=== PATIENT | male | born 1955 | race African-American/Black ===

== ENCOUNTER 2016-09-21 03:12 | Emergency (ER) | payer MEDICAID, OTHER ==
[~2016-09-21] VITALS: Ht 188 cm; Wt 94.0 kg
[~2016-09-21 03:12] MED LIST: AMPICILLIN; TETRACYCLINE
[2016-09-21] MEDS ORDERED: HYDROCODONE/ACETAMINOPHEN 5/325MG TABLET PO ONE (04:00)
[2016-09-21 05:28] VITALS: BP 134/92
== END 2016-09-21 05:30 | disposition home or self-care (01) ==
LOC: ER 03:32
DX: S40.011A Contusion of right shoulder, initial encounter (principal); I10 Essential (primary) hypertension; F17.210 Nicotine dependence, cigarettes, uncomplicated; Z88.0 Allergy status to penicillin; Z79.899 Other long term (current) drug therapy; Z86.73 Personal history of transient ischemic attack (TIA), and cerebral infarction without residual deficits; Y09 Assault by unspecified means; Y93.89 Activity, other specified; Y92.89 Other specified places as the place of occurrence of the external cause; Y99.8 Other external cause status
CPT/HCPCS: 73030; 99284; Z7610